=== PATIENT | female | born 1980 | race Caucasian/White ===

== ENCOUNTER → 2017-12-01 | Outpatient (CLI) | payer OTHER ==
[~2017-12-01] MED LIST: ASCO-182 PO; CETI10CA8 PO; CHOL500025 PO; CYAN20003 PO; Immune Support PO; META800T18 PO; ZINC30TA5 PO
== END ==
LOC: LAB 07:48
PROVIDERS: ATTEND Emergency Medicine
DX: Z13.220 Encounter for screening for lipoid disorders (principal)
CPT/HCPCS: 36415; 82465; 83718; 84478

== ENCOUNTER → 2018-09-06 | Outpatient (CLI) | payer OTHER ==
[~2018-09-06] MED LIST changes: +AZIT-1 PO; +AZIT500T45 PO; +MAGN400T10; +METH4TAB66 ASDIRECTED; +OSE75 PO; +ZOLP-1 PO
--- NOTE | 2018-09-06 16:31 | RADIOLOGY IMAGING REPORT ---
FACILITY: [facility] PATIENT NAME: Amanda Abdi : 1980 MR: [id number] V: [id number] EXAM DATE: ORDERING PHYSICIAN: JOCELYNN BERNAL TECHNOLOGIST: Location: [facility] [place] Patient: Amanda Abdi : 1980 Visit/Account:[id number] Date of Sevice: 09/06/2018 Exam type: EXTREMITY NON-VASCULAR LEFT History: Left popliteal fossa swelling following workout for six months Comparison: None. Findings: Along the posterior medial aspect of the left knee there is a 2.8 x 1 x 2.7 cm hypoechoic structure w hich may represent a complex popliteal cyst or possibly hematoma although soft tissue mass not entire ly excluded IMPRESSION: 1. There is a 2.8 x 1 x 2.7 cm hypoechoic structure along the posterior medial aspect of the left kn ee. The differential diagnosis includes a complex popliteal cyst, hematoma or soft tissue mass. If further diagnostic imaging is desired MR is recommended. Report Dictated By: Reshma Harris MD at 09/06/2018 4:24 PM Report E-Signed By: Reshma Harris MD at 09/06/2018 4:26 PM WSN:[email or web address]
== END ==
LOC: US 01:36
PROVIDERS: ATTEND Emergency Medicine
DX: M25.562 Pain in left knee (principal)
CPT/HCPCS: 93880